=== PATIENT | female | born 1965 | race African-American/Black ===

== ENCOUNTER 2016-12-24 08:22 | Outpatient (CLI) | payer OTHER ==
[~2016-12-24 08:22] MED LIST: ACET-689 PO; ALPR0.5T24 PO; CALCIUM600 M1 PO; FLEXERIL5 MG PO; GABA100C2 PO; HYDR-2748 PO; LISI5TAB10 PO; RANI150T78 PO; SERT50TA PO; VIT E COMPLX400 UNIT PO
== END 2016-12-24 09:30 | disposition home or self-care (01) ==
LOC: MAMMO 08:22
DX: Z12.31 Encounter for screening mammogram for malignant neoplasm of breast (principal)
CPT/HCPCS: G0202-TC

== ENCOUNTER 2018-02-25 09:11 | Outpatient (CLI) | payer OTHER | END 2018-02-25 19:20 | LOC: MAMMO 09:11 | DX: Z12.31 Encounter for screening mammogram for malignant neoplasm of breast (principal) ==

== ENCOUNTER 2019-02-28 09:03 | Outpatient (CLI) | payer OTHER | END 2019-02-28 20:21 | disposition home or self-care (01) | LOC: MAMMO 09:03 | DX: Z12.31 Encounter for screening mammogram for malignant neoplasm of breast (principal) ==

== ENCOUNTER 2020-02-27 10:19 | Outpatient (CLI) | payer OTHER | END 2020-02-27 20:29 | disposition home or self-care (01) | LOC: MAMMO 10:19 | DX: Z12.31 Encounter for screening mammogram for malignant neoplasm of breast (principal) ==

== ENCOUNTER 2020-12-20 11:33 | Outpatient (CLI) | payer OTHER | END 2020-12-20 19:38 | disposition home or self-care (01) | LOC: RAD 11:33 | PROVIDERS: ATTEND Family Medicine | DX: M54.9 Dorsalgia, unspecified (principal) ==

== ENCOUNTER 2021-02-27 09:14 | Outpatient (CLI) | payer OTHER | END 2021-02-27 19:16 | disposition home or self-care (01) | LOC: MAMMO 09:14 | PROVIDERS: ATTEND Obstetrics & Gynecology | DX: Z12.31 Encounter for screening mammogram for malignant neoplasm of breast (principal) ==

== ENCOUNTER 2022-03-06 08:35 | Outpatient (CLI) | payer OTHER | END 2022-03-06 19:01 | disposition home or self-care (01) | LOC: MAMMO 08:35 | PROVIDERS: ATTEND Obstetrics & Gynecology | DX: Z12.31 Encounter for screening mammogram for malignant neoplasm of breast (principal) ==